=== PATIENT | female | born 1980 | race Two or more races ===

== ENCOUNTER 2018-09-06 14:25 | Observation (INO) | payer MEDICAID ==
[2018-09-06] MEDS ORDERED: PREN-96 PO (15:15)
== END 2018-09-06 15:25 | disposition home or self-care (01) | DRG 566 ==
LOC: LDRP 14:25
PROVIDERS: ADMIT Obstetrics & Gynecology; ATTEND Obstetrics & Gynecology
DX: O26.893 Other specified pregnancy related conditions, third trimester (principal); R03.0 Elevated blood-pressure reading, without diagnosis of hypertension; Z3A.28 28 weeks gestation of pregnancy
CPT/HCPCS: 59025; 81002; G0378